=== PATIENT | male | born 1980 | race African-American/Black ===

== ENCOUNTER 2021-12-22 05:48 | Emergency (ER) | payer SELFPAY ==
[~2021-12-22] VITALS: Ht 172.7 cm; Wt 97.5 kg
[2021-12-22 07:57] VITALS: BP 132/66
--- NOTE | 2021-12-22 07:57 | NUR ---
Patient discharged to home in stable condition. Written and verbal after care instructions given. Patient verbalizes understanding of instruction.
== END 2021-12-22 07:57 | disposition home or self-care (01) ==
LOC: ER 05:50
DX: Z00.00 Encounter for general adult medical examination without abnormal findings (principal); F17.200 Nicotine dependence, unspecified, uncomplicated; Z59.00 Homelessness unspecified